=== PATIENT | female | born 1995 | race Caucasian/White ===

== ENCOUNTER 2024-02-12 02:46 | Emergency (ER) | payer OTHER, SELFPAY ==
[2024-02-12 02:49] VITALS: BP 123/78
--- NOTE | 2024-02-12 03:16 | ED.GENMED ---
History of Present Illness
<JAMES Finney - Last Filed: 02/12/24 04:20>
General
Chief Complaint: Insect Sting
Source: patient
Time Seen by Provider: 02/12/24 03:16
History of Present Illness
History of Present Illness:
A 28-year-old female with a past medical history of migraines, cholelithiasis, endometriosis, presents to the emergency room for possible infection on left ring finger. Patient admits that she first noticed a white bump on her left ring finger 36
hours ago which has slowly progressed to 1 cm in size. Patient states that shortly after noticing the bump it began to grow along with red streaking up her left ring finger and into her hand and forearm.Patient admits being in [place] for the past
9 days, having returned yesterday. She admits to [address] in the [facility] about 4 days ago. Patient also admits to cough off with yellow sputum production x 4 days. She incidentally reports UTI symptoms including urinary urgency
and frequency which began 1 day ago. She is only sexually active with 1 partner over the last year. She denies any recent trauma, spider bites, insect stings, chest pain, headaches, nausea, vomiting, fevers, chills.
Past History
<JAMES Finney - Last Filed: 02/12/24 04:20>
Past History
ED Past Medical History: Psychiatric (Panic and anxiety), Other (hypoglycemia) and Other (hyperemesis gravidarum, previous pregnancies, endometriosis); Negative Asthma, HTN, Hypercholesterolemia or NIDDM
ED Past Surgical History: None
Patient has exhibited threatening behavior?: No
Social History
Tobacco: Vaping (Nicotine)
Alcohol: None
Drug: Marijuana
Personal:
Living: with family
Family History
Family History: Other (non-contributory)
Phy Exam
<JAMES Finney - Last Filed: 02/12/24 04:20>
General Physical Exam
General Presentation: well appearing and no apparent distress
General age: appears stated age
General Skin: warm
General Habitus: normal
General Mental: alert
General Hydration: appears well hydrated
Eye Exam
Eye Exam: conjunctiva normal
Cardiovascular Exam
Cardiovascular Exam: regular rate/rhythm, no edema, no gallop, no murmur and normal peripheral pulses
Pulmonary Exam
Pulmonary Exam: lungs clear, no respiratory distress, no rales, no crackles, no rhonchi and no wheezing
Cough: coarse cough and productive cough
Gastrointestinal Exam
Gastrointestinal Exam: non tender, soft and non distended
Neurological Exam
Neurological Exam: alert, oriented x3 and CN II-XII intact
Musculoskeletal Exam
Musculoskeletal Exam: other (Limited flexion of left fourth digit at DIP joint. Minimal left fourth digit swelling. )
Skin Exam
Skin Exam: other (1 cm Raised pustule with Minimal surrounding erythema. minimal Lymphatic streaking is noted from fourth digit up volar aspect of the left hand into the left forearm. No left hand or left forearm edema or erythema noted)
Psychiatric Exam
Psychiatric Exam: normal mood/affect
Course
<JAMES Finney - Last Filed: 02/12/24 04:20>
Orders/Labs/Results
Orders:
Orders
02/12/24 03:46
Doxycycline [Vibramycin] 100 mg PO NOW STA
Mupirocin [Bactroban 2% Ointment] 1 applic TOPICAL NOW STA
02/12/24 03:50
Mupirocin [Bactroban 2% Ointment] 1 applic TOPICAL NOW STA
Vital Signs
Initial and Last Documented VS:
Initial Vital Signs
Temp Pulse Resp BP Pulse Ox
99.0 F 76 17 123/78 98
02/12/24 02:49 02/12/24 02:49 02/12/24 02:49 02/12/24 02:49 02/12/24 02:49
Last Documented Vital Signs
Temp Pulse Resp BP Pulse Ox
99.0 F 76 17 123/78 98
02/12/24 02:49 02/12/24 02:49 02/12/24 02:49 02/12/24 02:49 02/12/24 02:49
<Anjelica Garza DO - Last Filed: 02/12/24 03:59>
Orders/Labs/Results
Orders:
Orders
02/12/24 03:46
Doxycycline [Vibramycin] 100 mg PO NOW STA
Mupirocin [Bactroban 2% Ointment] 1 applic TOPICAL NOW STA
02/12/24 03:50
Mupirocin [Bactroban 2% Ointment] 1 applic TOPICAL NOW STA
Vital Signs
Initial and Last Documented VS:
Initial Vital Signs
Temp Pulse Resp BP Pulse Ox
99.0 F 76 17 123/78 98
02/12/24 02:49 02/12/24 02:49 02/12/24 02:49 02/12/24 02:49 02/12/24 02:49
Last Documented Vital Signs
Temp Pulse Resp BP Pulse Ox
99.0 F 76 17 123/78 98
02/12/24 02:49 02/12/24 02:49 02/12/24 02:49 02/12/24 02:49 02/12/24 02:49
<JAMES Finney - Last Filed: 02/12/24 04:20>
MDM/Problems Addressed
Differential Diagnosis Includes:
Infected spider bite versus infected insect sting
<Anjelica Garza DO - Last Filed: 02/12/24 03:59>
*Pulse Oximetry
Patient hypoxic: no
*Critical Care Note
Total Time (30-74mins, 75-104mins- exclusive of procedures): Not Applicable
ED Attending Note
<JAMES Finney - Last Filed: 02/12/24 04:20>
-
Portions of this chart may have been created with voice recognition software.� Occasional wrong word or��sound alike� substitutions may have occurred due to the inherent limitations of voice recognition software.
<Anjelica Garza DO - Last Filed: 02/12/24 03:59>
ED Attending Note
Patient seen and examined by attending physician: Yes
I performed the substantive portion of visit, reviewed & personally made and approve the management plan that is documented in note by myself or NEHAL.: Yes
ED Attending Note:
This is a 28-year-old female with history of endometriosis, migraine headaches who returns tonight from vacation/trip to [place] with concern for infection of the left ring digit which initially began 36 hours ago as an itchy papule on the ulnar
mid aspect of her left ring digit. This papule has increased in size and has become painful with small surrounding area of erythema and then tonight noticed some red streaking extending from the medial as well as posterior aspect of her finger.
She does not recall an insect bite nor sting. She denies local trauma nor friction injury.
She has not had a fever nor chills.
She has not been taking anything for discomfort.
She does note mild URI symptoms that began 4 days ago, overall improving, near resolved.
No history of immunocompromise, no history of diabetes. No prior history of MRSA. She denies risk of . Maintained on control pills.
GENERAL: 28-year-old female appears her stated age, bright and alert, pleasant, appears in no acute distress. Happily eating chips.
EYE: anicteric
NECK: Supple, nontender, no meningismus, no significant adenopathy.
ENT: oral mucosa is moist. No rhinorrhea.
CARDIAC: Regular rate and rhythm. no murmur.
LUNGS: Clear breath sounds bilaterally, no acute respiratory distress, no wheezes/rales/rhonchi
ABDOMEN: Soft, nondistended, without focal tenderness
NEUROLOGICAL: Alert and oriented x3, no focal neuro deficits. Gait is cortes and steady.
SKIN: Warm and dry, normal color, good turgor. No generalized rash. Along the ulnar mid aspect of the left ring digit is a well-circumscribed 1 cm superficial vesicle/pustule with minimal surrounding erythema and a very faint hint of lymphangitis
extending along the ulnar proximal aspect of the finger as well as minimal hint of erythema proximal dorsal aspect of the ring digit. There is minimal soft tissue swelling of the mid aspect of the ring digit. There is no joint effusion, no soft
tissue swelling nor tenderness to the hand nor wrist. Moderate local tenderness to this vesicle/pustule. There is no definitive evidence of insect sting or bite. There is no drainage. No necrosis.
MUSCULOSKELETAL: No C/C/E. peripheral pulses are full and equal b/l. Full range of motion without difficulty.
PSYCH: Normal and appropriate interaction.
Patient presents with potential focal insect bite left ring digit which now appears to have developed into a superficial pustule with concern for focal cellulitis.
This pustule is very superficial, without significant surrounding erythema nor edema.
She is afebrile and overall well in appearance.
At this point no indication to incise and drain but will initiate a course of doxycycline as well as topical mupirocin ointment.
Recommend Tylenol versus ibuprofen as needed for pain. Local warm compresses.
Prompt follow-up with PCP for recheck.
Mild URI symptoms that began 4 days ago overall appears to have resolved. No indication for URI specific testing/identification nor imaging.
No indication for laboratory studies.
Return precautions discussed.
Discharge Plan
Departure
Patient Disposition: Home (Routine Discharge)
Date of Disposition: 02/12/24
Time of Disposition: 03:56
Patient with high blood pressure during this ER visit?: No
Condition: Good
Discharge Problem:
pustule left ring digit
Instructions: Cellulitis (Skin Infection), Adult (DC)
Prescriptions:
New
doxycycline monohydrate 100 mg capsule
100 mg PO BID Qty: 14 1RF
mupirocin 2 % ointment
1 applic topical TID Qty: 15 0RF
No Action
cannabidiol [Epidiolex] 1 UNIT solution
1 unit inhalation PRN PRN (Reason: pain)
Patient Comments:
for pain, chronic migraines and headaches
fluoxetine 10 MG capsule
10 mg PO DAILY
Bcp
1 tab PO .ASDIRECTED
promethazine [Promethegan] 25 MG suppository
25 mg IA Q6HPRN PRN (Reason: Nausea/Vomiting) Qty: 6 0RF
ondansetron 4 MG tablet,disintegrating
4 mg PO TIDPRN PRN (Reason: nausea/vomiting) Qty: 7 0RF
famotidine 20 MG tablet
20 mg PO BID Qty: 28 0RF
Rx Instructions:
Take 20 mg twice a day for 14 days
ascorbic acid (vitamin C) [Vitamin C] 500 MG tablet
1,000 mg PO BID Qty: 56 0RF
Rx Instructions:
Take 1,000 mg twice a day for 14 days
zinc sulfate 220 MG capsule
220 mg PO DAILY Qty: 14 0RF
Rx Instructions:
Take 220 mg daily for 14 days
cholecalciferol (vitamin D3) 1,000 UNITS tablet
2,000 units PO DAILY Qty: 28 0RF
Rx Instructions:
Take 2,000 units daily for 14 days
melatonin 5 MG tablet
5 mg PO HS Qty: 14 0RF
Rx Instructions:
Take 5 mg daily at bedtime for 14 days
Referrals:
Bao Landry, [Family Provider] - Call in 1-3 days for appt
Interventions
Interventions:
*Risk Screen - Suicide Last Done: 02/12/24 02:49
*General Assessment Last Done: 02/12/24 03:52
*Neglect/Abuse Screening Last Done: 02/12/24 03:52
ED- Fall Risk Assessment Last Done: 02/12/24 04:07
*ED COVID-19 Vaccine History Last Done: 02/12/24 04:07
*Nursing Disposition Last Done: 02/12/24 04:07
ED- Pulmonary Assessment Last Done: 02/12/24 03:53
ED-Skin Assessment Last Done: 02/12/24 03:53
Discharge Date and Time
Discharge Date/Time: 02/12/24 04:08
Print Language: SAUDI ARABIAN
[2024-02-12] MEDS: BACTROBAN 2% OINTMENT 1 APPLIC TOPICAL (03:58)
[2024-02-12] MEDS: VIBRAMYCIN 100 MG PO (03:58)
== END 2024-02-12 04:08 | disposition home or self-care (01) ==
LOC: EMR 02:46
PROVIDERS: EMERGENCY PHYSICIAN Emergency Medicine; FAMILY PHYSICIAN Family Medicine
DX: L08.9 Local infection of the skin and subcutaneous tissue, unspecified (principal); R05.9 Cough, unspecified; F41.9 Anxiety disorder, unspecified; E16.2 Hypoglycemia, unspecified; F17.290 Nicotine dependence, other tobacco product, uncomplicated
CPT/HCPCS: 99282